=== PATIENT | female | born 1980 | race Caucasian/White ===

== ENCOUNTER 2020-07-18 10:25 | Emergency (ER) | payer MEDICAID ==
[~2020-07-18] VITALS: Ht 165.1 cm; Wt 81.0 kg
[2020-07-18] MEDS ORDERED: IBUPROFEN 800MG TABLET PO ONE (11:00)
[2020-07-18 11:25] VITALS: BP 125/83
== END 2020-07-18 13:15 | disposition home or self-care (01) ==
LOC: ER 10:25
DX: S82.851A Displaced trimalleolar fracture of right lower leg, initial encounter for closed fracture (principal); W18.39XA Other fall on same level, initial encounter; Y93.89 Activity, other specified; Y92.89 Other specified places as the place of occurrence of the external cause; Y99.8 Other external cause status
CPT/HCPCS: 73590; 73610; 81025; 99284